=== PATIENT | female | born 2000 | race African-American/Black ===

== ENCOUNTER 2020-05-14 13:20 | Emergency (ER) | payer OTHER ==
[~2020-05-14] VITALS: Ht 152.4 cm; Wt 72.7 kg
[2020-05-14] MEDS ORDERED: CefTRIAXone SODIUM 1 GM/VIAL IM ONE (14:30)
[2020-05-14] MEDS ORDERED: AZITHROMYCIN 500 MG TABLET PO ONE (14:30)
[2020-05-14 15:26] VITALS: BP 118/79
[2020-05-14] MEDS ORDERED: LIDOCAINE/PF 1% 2 ML VIAL IM ONE (15:30)
== END 2020-05-14 15:32 | disposition home or self-care (01) ==
LOC: EMS 13:20
DX: N39.0 Urinary tract infection, site not specified (principal); N89.8 Other specified noninflammatory disorders of vagina; Z87.891 Personal history of nicotine dependence
CPT/HCPCS: 96372; J0696; J3490